=== PATIENT | male | born 1955 | race Caucasian/White ===

== ENCOUNTER 2016-05-11 11:49 | Day surgery (SDC) | payer OTHER, BC ==
[~2016-05-11] VITALS: Ht 182.9 cm; Wt 116.5 kg
[~2016-05-11 11:49] MED LIST: CALA120T PO; ENAL20TA81 PO; FLON0.053; HYDR-3533 PO
[2016-05-11] MEDS ORDERED: CHLORHEXIDINE GLUCONATE 2 % 1 PACK (2 CLOTHS) TOP SCH (12:30)
[2016-05-11] MEDS ORDERED: MUPIROCIN 2% OINT 1 APPLIC/GM SYR NASAL SCH (12:30)
[2016-05-11] MEDS ORDERED: VANCOMYCIN 1000 MG/NS 250 ML IV SCH ×2 (12:30)
[2016-05-11] MEDS ORDERED: ceFAZolin 2 GM PREMIX 50 ML IV SCH (12:30)
[2016-05-11] MEDS ORDERED: POVIDONE IODINE 5% (ANTISEPSIS KIT) 4 APPLICATIONS EACH NARE SCH (12:30)
[2016-05-11] MEDS ORDERED: VERA120T3 PO (12:42)
[2016-05-11] MEDS ORDERED: PRAV80TA2 PO (12:42)
[2016-05-11] MEDS ORDERED: ENAL20TA PO (12:42)
[2016-05-11] MEDS ORDERED: CIAL5TAB PO (12:42)
--- NOTE | 2016-05-11 13:26 | MA ---
cc: AMERICO DESAI MD DATE May 11, 2016 PROCEDURE PERFORMED Loop recorder insertion. PREPROCEDURE DIAGNOSIS Concern for atrial fibrillation. POSTPROCEDURE DIAGNOSIS Successful loop recorder insertion. DESCRIPTION OF PROCEDURE The patient was brought to the DOC Unit in the postabsorptive state after informed consent was obtained. A [email or web address] LIN[employer] loop recorder was inserted subcutaneously in the left chest. The patient tolerated the procedure well without any apparent complications. Tachybrady pause and atrial fibrillation detection was enabled. Initial R-wave was 0.63 mV. The serial number [id number]. Americo Desai MD CHRIS/JAMAL /1:18 PM /1:23 PM
== END 2016-05-11 13:53 | disposition home or self-care (01) ==
LOC: HDOC 11:49 → HDIC 12:00 → HDOC 13:53
PROVIDERS: ATTEND Nuclear Medicine Nuclear Cardiology
DX: R00.2 Palpitations (principal); I35.0 Nonrheumatic aortic (valve) stenosis; I11.9 Hypertensive heart disease without heart failure; R01.1 Cardiac murmur, unspecified; E78.5 Hyperlipidemia, unspecified
CPT/HCPCS: 33282; C1764